=== PATIENT | female | born 1950 | race Caucasian/White ===

== ENCOUNTER 2018-01-07 17:29 | Observation (INO) | payer MEDICARE, SELFPAY ==
[2018-01-07] VITALS (11 sets, daily range): BP systolic 142–172; BP diastolic 70–96; PULSE 65–92; RESP 13–19; TEMP 36.7–36.8; O2SAT 95–100; BMI 38.3; BMI 37.5; BMI 37.6
--- NOTE | 2018-01-07 17:48 | EKG12_ITS ---
Test Reason : CP Blood Pressure : / mmHG Vent. Rate : 076 BPM Atrial Rate : 076 BPM P-R Int : 140 ms QRS Dur : 086 ms QT Int : 394 ms P-R-T Axes : 030 013 080 degrees QTc Int : 443 ms Sinus rhythm with Premature supraventricular complexes Nonspecific ST and T wave abnormality Abnormal ECG Confirmed by DIOR VICK, FRANCK ([id number]), loan expeditor ALYCIA HERRERA ([id number]) on 01/09/2018 12:59:08 PM Referred By: MILTON Confirmed By:FRANCK RADER MD
--- NOTE | 2018-01-07 17:49 | RAD_ITS ---
STUDY: X-RAY CHEST REASON FOR EXAM: Female, 67 years old. Chest pain TECHNIQUE: Frontal and lateral views of the chest COMPARISON: None. FINDINGS: The lungs are clear. There are no pleural effusions. There is no pneumothorax. The heart is normal in size. The visualized osseous structures are within normal limits. RAD/Chest PA and Lateral IMPRESSION: No acute thoracic pathology. Electronically Signed: Musa Muñiz, at 18:14 EDT Tel , Service support ,
[2018-01-07 17:58] LABS: Absolute Lymphocyte Count 1.76 X10^3/ul (0.83-4.51); Absolute Neutrophil Count 2.2 X10^3/uL (2.0-7.7); Basophil# 0.02 X10^3/uL; Basophil% 0.4 % (0-1); Eosinophil# 0.14 X10^3/uL; Eosinophils% 3.1 % (0-5); Hematocrit 39.9 % (37-47); Hemoglobin 13.3 g/dl (12.0-15.0); Lymphocyte # 1.76 X10^3/ul (4.0); Lymphocyte % 38.8 % (19-41); Mean Corp Hgb Conc 33.3 g/gl (32-36); Mean Corpuscular Hgb 29.4 pg (27.0-32.0); Mean Corpuscular Volume 88.1 fL (81-99); Mean Platelet Vol. 11.1 fl (6.2-12.0); Monocyte# 0.44 X10^3/uL; Monocyte% 9.7 % (0-10); Neutrophil # 2.16 X10^3/uL (2.7-7.7); Neutrophil % 47.6 % (47-70); Platelet Count 130 K/mm3 (150-450); RBC Distribution Width CV 13.4 % (11.6-14.6); Red Blood Count 4.53 M/mm3 (4.2-5.4); White Blood Count 4.5 K/mm3 (4.4-11.0)
[2018-01-07 18:00] LABS: POSITIVE COUNT NO; POSITIVE DIFFERENTIAL NO; POSITIVE MORPHOLOGY NO
[2018-01-07] MEDS: Aspirin 81 MG TAB.CHEW 324 MG PO (18:04)
[2018-01-07 18:12] LABS: Anion Gap 9 (5-15); BUN 19 mg/dL (7-18); BUN/Creat Ratio 23.8 RATIO (10-20); Calcium,Total 9.4 mg/dL (8.5-10.1); Chloride 103 mmol/L (98-107); EST Glomerular Filtration Rate 77 mL/min (>60); Est Glom Filt Rate - Afr Amer 93 mL/min (>60); Estimated Creatinine Clearance 60.54 ml/min; Glucose 102 mg/dL (74-106); Potassium 3.7 mmol/L (3.5-5.1); Sodium Level 140 mmol/L (136-145)
--- NOTE | 2018-01-07 18:54 | ED.VISSUMM ---
- ER Visit Summary Date of Service: 01/07/18 Chief Complaint: Chest pain History of Present Illness: The patient is a 67 F presenting for evaluation secondary chest pain. Patient states that she typically walks about a mile and a half per day on the treadmill, but 2 weeks ago she had the of a family member and had to go to [place] to attend the . Patient states that she did walk for about 2 weeks and started walking again yesterday. Patient states that after walking yesterday she had generalized malaise nausea and some aching in her left arm. She states that this improved throughout the day. Patient states that she walked again today had similar episode and was also associated with a feeling of diaphoresis. Patient states that her symptoms have since improved, but this concerned her so she presented to the emergency department. Patient states that while traveling, they did get out of the car every 2 hours she denies any asymmetric swelling of the legs hemoptysis history of DVT or PE. Patient states that her last stress test was a years ago. Physical Examination: Vital signs are within normal limits, patient is afebrile. General: Patient is well-nourished well-developed and in no acute distress. Head: Normocephalic, atraumatic Eyes: Pupils equal round and reactive bilaterally, extra occular motion intact bialterally ENT: Moist mucous membranes Neck: Supple, no lymphadenopathy, no JVD, no meningismus CVS: Heart regular rate and rhythm, no murmurs, rubs or gallops, radial pulses 2+ bilaterally Resp: Respirations nondistressed, lung sounds clear bilaterally Abdomen: Soft, nontender, nondistended, no palpable masses, normal bowel sounds Back: Nontender Extremities: Nontender, atraumatic, active full range of motion, no peripheral edema Skin: warm, no rashes, no petechia Neuro: Alert and oriented x 4, CN 2-12 intact, no lateralizing neurological defecits Psyc: Normal affect Test Results: EKG shows sinus rate [address] segments, normal T waves, occasional PACs. No evidence of acute ischemia or arrhythmia. Chest x-ray per radiology negative. Troponin CBC and chemistry also found to be unremarkable. Emergency Department Course and Treatment: Patient presented with chest pain. Patient's workup was unremarkable as noted above. Patient's QUIANA score is 3, but her symptomatology is significantly concerning a believe she requires admission for cardiac rule out I discussed this with the hospitalist and the patient will be admitted. Disposition: Admission Impression: 1. Chest pain This note was generated with [employer] dictation software. It may contain incorrect words, spelling, and punctuation that were not noted in review of the chart prior to signing ED Disposition - Plan for ED Patient: Chief Complaint: Chest Pain Referrals: Steve Buitrago DO [Primary Care Provider] -
--- NOTE | 2018-01-07 18:57 | ED.DCSUM_ITS ---
- ER Visit Summary Date of Service: 01/07/18 Chief Complaint: Chest pain History of Present Illness: The patient is a 67 F presenting for evaluation secondary chest pain. Patient states that she typically walks about a mile and a half per day on the treadmill, but 2 weeks ago she had the of a family member and had to go to [place] to attend the . Patient states that she did walk for about 2 weeks and started walking again yesterday. Patient states that after walking yesterday she had generalized malaise nausea and some aching in her left arm. She states that this improved throughout the day. Patient states that she walked again today had similar episode and was also associated with a feeling of diaphoresis. Patient states that her symptoms have since improved, but this concerned her so she presented to the emergency department. Patient states that while traveling, they did get out of the car every 2 hours she denies any asymmetric swelling of the legs hemoptysis history of DVT or PE. Patient states that her last stress test was a years ago. Physical Examination: Vital signs are within normal limits, patient is afebrile. General: Patient is well-nourished well-developed and in no acute distress. Head: Normocephalic, atraumatic Eyes: Pupils equal round and reactive bilaterally, extra occular motion intact bialterally ENT: Moist mucous membranes Neck: Supple, no lymphadenopathy, no JVD, no meningismus CVS: Heart regular rate and rhythm, no murmurs, rubs or gallops, radial pulses 2 + bilaterally Resp: Respirations nondistressed, lung sounds clear bilaterally Abdomen: Soft, nontender, nondistended, no palpable masses, normal bowel sounds Back: Nontender Extremities: Nontender, atraumatic, active full range of motion, no peripheral edema Skin: warm, no rashes, no petechia Neuro: Alert and oriented x 4, CN 2-12 intact, no lateralizing neurological defecits Psyc: Normal affect Test Results: EKG shows sinus rate [address] segments, normal T waves, occasional PACs. No evidence of acute ischemia or arrhythmia. Chest x- ray per radiology negative. Troponin CBC and chemistry also found to be unremarkable. Emergency Department Course and Treatment: Patient presented with chest pain. Patient's workup was unremarkable as noted above. Patient's QUIANA score is 3, but her symptomatology is significantly concerning a believe she requires admission for cardiac rule out I discussed this with the hospitalist and the patient will be admitted. Disposition: Admission Impression: 1. Chest pain This note was generated with [employer] dictation software. It may contain incorrect words, spelling, and punctuation that were not noted in review of the chart prior to signing ED Disposition - Plan for ED Patient: Chief Complaint: Chest Pain Referrals: Steve Buitrago DO [Primary Care Provider] -
--- NOTE | 2018-01-07 21:16 | HP.PCM_ITS ---
Problem List (1) Chest pain Status: Acute (2) DMII (diabetes mellitus, type 2) Status: Acute (3) HTN (hypertension) Status: Chronic (4) Hypothyroid Status: Acute History of Present Illness Date of Admission: 01/07/18 Chief Complaint: Chest pain The patient is a 67 year old female w/ h/o DMII, HTN, and hypothyroid admitted for chest pain. Her recently admitted for chest pain. She has been under a lot of stressors and emotional turmoil with a in the family. She recently had to travel to [place] to attend a . She did not do her usual exercise which is walking on her treadmill for 30 mins daily. When she returned to her normal routine, she developed nausea and a overall feeling of fatigue after her exercise yesterday. She walked on her treadmill again today and she developed SOB associated diaphoresis. Nothing appeared to make it better or worse. Despite resting, she did not notice any immediate improvement. However by the time she arrived to the ED, she had some relief of her symptoms. Past Medical History Past Medical History (Chronic Problems): Chronic Problems HTN (hypertension) (Chronic) Allergies tobramycin Allergy (Verified 01/07/18 17:34) Rash Home Medications: Ambulatory Orders Medication Instructions Recorded Aspirin [Aspirin, Baby] 81 mg PO DAILY@0800 01/07/18 Docusate Sodium [Colace] 100 mg PO DAILY 01/07/18 Levothyroxine [Synthroid] 125 mcg PO DAILY 01/07/18 Metformin HCl [Glucophage] 1,000 mg PO BIDCM 01/07/18 Omeprazole [Prilosec] 20 mg PO DAILY 01/07/18 Valsartan/Hydrochlorothiazide 1 each PO DAILY 01/07/18 [Valsartan-Hctz 160-12.5 mg Tab] Smoking Status: Never smoker Alcohol: None Drugs: None Review of Systems Constitutional: Denies: Chills, Fever, Weight Change HEENT: Denies: Head Aches, Sinus Congestion, Sinus Drainage Cardiovascular: Reports: Chest Pain. Denies: Palpitations Respiratory: Denies: Cough, Shortness of breath at rest, Sputum production Gastrointestinal: Denies: Abdominal Pain, Nausea, Vomiting Genitourinary: Denies: Dysuria Musculoskeletal: Denies: Joint Pain, Joint Tenderness Skin: Denies: Rash, Wounds Neurological: Denies: Numbness, Tingling, Focal weakness Psychiatric: Denies: Anxiety, Depression, Homicidal Ideations, Suicidal Ideations Hematologic/ Lymphatic: Denies: Easy Bruising, Easy Bleeding VTE Information - Inpt Only VTE Present on Admission: No VTE Mechan Device Prophylaxis: SCD's VTE Pharm Prophylaxis ordered?: Yes Patient Problems: Active and Suspected Problems Chest pain (Acute) DMII (diabetes mellitus, type 2) (Acute) Hypothyroid (Acute) - Physical Exam General: Alert, Oriented x3, Cooperative HEENT: Atraumatic, PERRLA, EOMI, Normocephalic Neck: Supple, No JVD, Negative Carotid Bruits Lungs: Clear to auscultation, Normal air movement Cardiovascular: Regular rate, No murmurs Abdomen: Bowel Sounds Present, Soft, Non Tender Extremities: No edema, Capillary Refill Less than 3 Seconds Skin: No rashes, No breakdown Musculoskeletal: No Tenderness to Palpation of Joints or Extremities Neurological: Cranial nerves II-XII grossly intact Psych/Mental Status: Normal Affect, Appropriate Vital Signs Temp Pulse Resp BP Pulse Ox 98.1 F 69 16 160/77 H 98 01/07/18 18:41 01/07/18 20:09 01/07/18 20:09 01/07/18 20:09 01/07/18 20:09 Oxygen Delivery Method Nasal Cannula Assessment/Plan Active and Suspected Problems Chest pain (Acute) DMII (diabetes mellitus, type 2) (Acute) Hypothyroid (Acute) 67 year old female w/ h/o DMII, HTN, and hypothyroid admitted for chest pain. 1) Chest pain: Heart score 5 Trops negative EKG disclosed occasional PACs. Otherwise, unremarkable EKG and chest xray. Will resume home meds. ECHO and stress test in AM. 2) HTN: Resume home meds. Monitor. 3) DMII: Resume metformin. 4) Prophylaxis: SCD / heparin.
[2018-01-07 21:53] LABS: D-Dimer Quantitative (DVT/PE) < 0.27 FEU/ug/m (0.27-0.49)
[2018-01-07] MEDS: Carvedilol 6.25 MG Tablet PO (22:31)
[2018-01-08] VITALS (7 sets, daily range): BP systolic 120–123; BP diastolic 56–66; PULSE 50–69; RESP 16–18; TEMP 36.4–36.9; O2SAT 94–98
[2018-01-08] MEDS: Aspirin 81 MG TAB.CHEW PO (05:26)
[2018-01-08] MEDS: Levothyroxine 125 MCG Tablet PO (05:26)
[2018-01-08 05:29] LABS: Absolute Lymphocyte Count 1.65 X10^3/ul (0.83-4.51); Absolute Neutrophil Count 2.4 X10^3/uL (2.0-7.7); Basophil# 0.02 X10^3/uL; Basophil% 0.4 % (0-1); Eosinophil# 0.19 X10^3/uL; Hematocrit 36.3 % (37-47); Lymphocyte # 1.65 X10^3/ul (4.0); Lymphocyte % 34.7 % (19-41); Mean Corp Hgb Conc 33.1 g/gl (32-36); Mean Corpuscular Hgb 29.1 pg (27.0-32.0); Mean Corpuscular Volume 88.1 fL (81-99); Mean Platelet Vol. 10.8 fl (6.2-12.0); Monocyte# 0.46 X10^3/uL; Monocyte% 9.7 % (0-10); Neutrophil # 2.42 X10^3/uL (2.7-7.7); Neutrophil % 50.8 % (47-70); Platelet Count 122 K/mm3 (150-450); RBC Distribution Width CV 13.3 % (11.6-14.6); RBC Distribution Width SD 41.7 fl (35.1-43.9); Red Blood Count 4.12 M/mm3 (4.2-5.4); White Blood Count 4.8 K/mm3 (4.4-11.0)
[2018-01-08 05:36] LABS: International Normalized Ratio 1.1; Prothrombin Time (Protime)PT. 14.4 SECONDS (11.7-14.9)
[2018-01-08 05:37] LABS: Partial Thromboplast Time 30.5 Seconds (24.1-36.2)
[2018-01-08 05:54] LABS: BNP,B-Type NATRIURETIC PEPTIDE 42.5 pg/mL (0-100)
--- NOTE | 2018-01-08 05:55 | EKGRS_ITS ---
Test Reason : AM EKG Blood Pressure : / mmHG Vent. Rate : 058 BPM Atrial Rate : 058 BPM P-R Int : 140 ms QRS Dur : 084 ms QT Int : 462 ms P-R-T Axes : 016 002 057 degrees QTc Int : 453 ms Sinus bradycardia with Premature atrial complexes in a pattern of bigeminy Otherwise normal ECG When compared with ECG of 07-JAN-2018 17:30, MANUAL COMPARISON REQUIRED, DATA IS UNCONFIRMED Confirmed by DIOR VICK, FRANCK ([id number]), online editor ALYCIA HERRERA ([id number]) on 01/11/2018 3:38:12 PM Referred By: AMARJIT Confirmed By:FRANCK RADER MD
[2018-01-08 06:02] LABS: POSITIVE COUNT NO; POSITIVE DIFFERENTIAL NO; POSITIVE MORPHOLOGY NO
--- NOTE | 2018-01-08 06:10 | RAD_ITS ---
STUDY: X-RAY CHEST REASON FOR EXAM: Female, 67 years old. Chest pain and cough TECHNIQUE: PA and lateral views of the chest. COMPARISON: None. FINDINGS: EKG leads overlie the chest The lungs are clear and expanded. There is no demonstrated pleural abnormality. Normal size heart. Normal mediastinum and sara. Normal visualized pulmonary arteries. Normal visualized aortic arch and descending thoracic aorta. Normal visualized thoracic spine. Normal visualized ribs, clavicles, and shoulders. There is no demonstrated abnormality of the visualized soft tissue structures of the upper abdomen. RAD/Chest PA and Lateral IMPRESSION: No acute pulmonary process Electronically Signed: Raymond Palomino MD at 7:48 EDT , Service support ,
[2018-01-08] MEDS: Carvedilol 6.25 MG Tablet PO (09:16)
[2018-01-08] MEDS: Docusate Sodium 100 MG Capsule PO (09:16)
[2018-01-08] MEDS: Pantoprazole Sodium 20 MG Tablet PO (09:17)
[2018-01-08] MEDS: HYDROCHLOROTHIAZIDE 12.5 MG CAPSULE PO (09:17)
[2018-01-08] MEDS: metFORMIN HCl 1,000 MG Tablet 1000 MG PO (09:19)
[2018-01-08 09:47] LABS: ALB/GLOB Ratio 0.9 RATIO (0.9-2.4); AST(SGOT) 27 U/L (15-37); Alanine Aminotransfer ALT/SGPT 28 U/L (13-56); Albumin, Serum 3.6 g/dL (3.2-5.0); Alkaline Phosphatase 65 U/L (45-117); Anion Gap 10 (5-15); BUN 14 mg/dL (7-18); BUN/Creat Ratio 17.7 RATIO (10-20); Bilirubin, Direct 0.16 mg/dL (0.00-0.30); Calcium,Total 9.2 mg/dL (8.5-10.1); Chloride 103 mmol/L (98-107); Cholesterol 202 mg/dL (200); Creatinine, Serum 0.79 mg/dL (0.55-1.02); EST Glomerular Filtration Rate 77 mL/min (>60); Est Glom Filt Rate - Afr Amer 93 mL/min (>60); Estimated Creatinine Clearance 61.31 ml/min; Globulin 3.8 g/dL (2.2-4.2); Glucose 144 mg/dL (74-106); High Density Lipoprotein 43 mg/dL; Magnesium 2.1 mg/dL (1.6-2.6); Potassium 3.7 mmol/L (3.5-5.1); Protein, Total 7.4 g/dL (6.4-8.2); Sodium Level 139 mmol/L (136-145); Thyroid Stim Hormone (TSH) 2.44 uIU/mL (0.358-3.74); Triglycerides 169 mg/dL; Very Low Density Lipoprotein 34 mg/dL (5-40)
--- NOTE | 2018-01-08 09:50 | ECHOD_ITS ---
Reason For Study: Chest Pain Procedure This was a 2D Doppler, Color Flow transthoracic echocardiogram. Exam performed portable in patient room. Left Ventricle Normal LV size. Mild concentric left ventricular hypertrophy. The estimated ejection fraction is 65 %. Left ventricular systolic function is normal. No regional wall motion abnormalities noted. Right Ventricle Normal RV size. Normal systolic function. Atria Normal left atrium. Normal right atrium. Mitral Valve Normal mitral valve. Tricuspid Valve Normal tricuspid valve. Mild tricuspid valve insufficiency. Pulmonary artery systolic pressure is 21 mmHg. Aortic Valve Normal aortic valve. Trisinus/trileaflet aortic valve. Pulmonic Valve Normal pulmonic valve. Great Vessels Normal aortic root. The pulmonary artery is normal size. Normal inferior vena cava. Pericardium/Pleural No pericardial effusion. MMode/2D Measurements & Calculations LVIDd: 4.7 cm IVSd: 1.3 cm Ao root diam: 3.6 cm LVIDs: 3.2 cm LVPWd: 1.2 cm LA dimension: 4.5 cm RVDd: 3.2 cm FS: 32.8 % LAV(MOD-bp): 51.3 ml EDV(MOD-sp4): 78.0 ml SV(MOD-sp4): 59.6 ml LAV(MOD-bp) Indexed: 25.3 ml/m2 ESV(MOD-sp4): 18.5 ml LAV(MOD-sp2): 47.8 ml EF(MOD-sp4): 76.3 % LAV(MOD-sp4): 54.3 ml LA A4 area: 19.7 cm2 RA A4 area: 11.5 cm2 Doppler Measurements & Calculations MV E max jared: 60.1 cm/sec Lat Peak E' Jared: 10.2 cm/sec Med Peak E' Jared: 4.7 cm/sec MV A max jared: 75.2 cm/sec E/E' lat: 5.9 E/E' med: 12.8 MV E/A: 0.80 Ao V2 max: 168.1 cm/sec LV V1 max: 154.3 cm/sec PA V2 max: 109.6 cm/sec Ao max P.3 mmHg LV V1 max P.5 mmHg Ao V2 mean: 109.4 cm/sec Ao mean P.3 mmHg Ao V2 VTI: 33.7 cm TR max jared: 206.1 cm/sec TR max P.0 mmHg Interpretation Summary Normal LV size. Mild concentric left ventricular hypertrophy. The estimated ejection fraction is 65 %. Left ventricular systolic function is normal. Mild tricuspid valve insufficiency. Pulmonary artery systolic pressure is 21 mmHg. Ordering Physician: Letty Orellana Referring Physician: Steve Buitrago Performed By: Kim Ames, SOWMYA, RVT
--- NOTE | 2018-01-08 10:04 | STRESSREP ---
Stress Test Report Pharmacologic myocardial perfusion stress test. 67-year-old lady with a history of chest pain. Stress protocol: Resting EKG demonstrates sinus bradycardia with a rate of 59 bpm. Normal intervals are noted. Resting blood pressure is 112/70 mmHg. 0.4 mg of regadenoson was infused per usual protocol followed by rapid intravenous saline flush injection. Continuous EKG monitoring was performed. The patient maintained sinus rhythm throughout the recording. The maximum heart rate attained was 105 bpm which was 67% of the maximum predicted heart rate the maximum workload attained was 1 metabolic equivalent. The resting blood pressure is 112/70 mmHg. The final blood pressure was 92/54 mmHg. Myocardial perfusion protocol. 14.5 mCi of technetium 99m sestamibi was injected at rest. 0.4 mg of regadenoson was infused per usual protocol. At peak infusion 44.8 mCi of technetium 99m sestamibi was injected. Stress images were obtained. Stress and rest images were reconstructed and compared in the short axis vertical long and horizontal long axis. Gated images were also obtained. Perfusion SPECT analysis. Review of the stress images demonstrate normal uptake of tracer noted in all areas of the myocardium. The resting images similarly demonstrate normal uptake of tracer noted in all areas of the myocardium. No reversibility is noted to suggest ischemia and no previous infarct is noted. Gated SPECT analysis: The gated ejection fraction is noted to be 76%. Conclusion: Normal pharmacologic myocardial perfusion stress test. Preserved ejection fraction.
--- NOTE | 2018-01-08 13:45 | DCINST_ITS ---
- Discharge Diagnoses Current Active Problems: Current Active and Chronic Problems Chest pain (Acute) DMII (diabetes mellitus, type 2) (Acute) HTN (hypertension) (Chronic) Hypothyroid (Acute) You will use the following diet at home:: Calorie/Carbohydrate Controlled ( specify 1200, 1400, etc) - 1800 lexy, Cardiac Your food should be the consistency of: Regular Discharge Activity: Return to Normal Activity Weight Bearing Status: Weight bearing as tolerated Call your doctor if you observe: Fever of 101 or Higher, Shortness of breath, Dizziness, Fainting spells, Chest pain, Increased palpitations (irregular heartbeat), Uncontrolled pain Instructions: Controlling High Blood Pressure, Taking Your Blood Pressure Allergies/Adverse Reactions: Allergies tobramycin Allergy (Verified 01/07/18 17:34) Rash Medications to take at Discharge Aspirin [Aspirin, Baby] 81 mg PO DAILY@0800 01/07/18 Docusate Sodium [Colace] 100 mg PO DAILY 01/07/18 Levothyroxine [Synthroid] 125 mcg PO DAILY 01/07/18 Metformin HCl [Glucophage] 1,000 mg PO BIDCM 01/07/18 Omeprazole [Prilosec] 20 mg PO DAILY 01/07/18 Valsartan/Hydrochlorothiazide [Valsartan-Hctz 160-12.5 mg Tab] 1 each PO DAILY 01/07/18 Primary Care Physician: Steve Buitrago DO [Primary Care Provider] - Please follow up with your Primary Care Physician in: 1 week.
--- NOTE | 2018-01-08 14:44 | PCM.DC.SUM ---
Discharge Date and Diagnosis - Problem List Patient Problems: Active and Suspected Problems Chest pain (Acute) Date of Admission: 01/07/18 Date of Discharge: 01/08/18 - Primary Discharge Diagnosis Active and Suspected Problems Exertional chest pain, negative cardiac workup including stress test. - Secondary Discharge Diagnosis Chronic Problems HTN (hypertension) (Chronic) Hospital Course and Treatment Imaging Results: 01/08/18 09:50 Echo Complete [ECHO] Routine Clinical Impression(s) from Imaging Studies Chest X-Ray 01/07/18 17:49 IMPRESSION: No acute thoracic pathology. Electronically Signed: Musa Muñiz, at 18:14 EDT Tel , Service support , Chest X-Ray 01/08/18 06:10 IMPRESSION: No acute pulmonary process Electronically Signed: Raymond Palomino MD at 7:48 EDT , Service support , Operations: None Procedures: 2-D Echocardiogram, EKG, Stress test Summary of Care Provided: Patient seen and examined on the day of discharge and appeared to be stable to be discharged home. She has no more chest pain this morning. She was admitted because of what seemed to be exertional chest pain. Her vital signs are stable. - Physical Exam General: Alert, Oriented x3, Cooperative, No apparent distress. HEENT: Atraumatic, PERRLA, EOMI. Neck: Supple, No JVD, Negative Carotid Bruits, Trachea Midline, Thyroid Normal. Lungs: Clear to auscultation, Normal air movement, No rhonchi, No wheeze, No rales. Cardiovascular: Regular rate, Regular Rhythm, Normal S1, Normal S2, PMI Normal. Abdomen: Bowel Sounds Present, Soft, Non Tender, Non-Distended, No Hepato-splenomegaly. Extremities: No clubbing, No cyanosis, No edema Skin: No rashes, No breakdown Neurological: Neuro grossly intact Vital Signs are stable. Hospital course: The patient is a 67 year old F admitted because of exertional chest pain for evaluation. Reportedly, patient has been going under a lot of stressors with a in the family. Her EKG revealed no evidence of acute ischemic changes, revealed PACs. Troponin was negative ?4. Chest x-ray showed no acute findings. Her routine blood work was unremarkable. Her d-dimer was negative. Her LFT was normal. TSH was normal. She underwent nuclear stress test that revealed no evidence of acute stress-induced myocardial ischemia with preserved ejection fraction. 2D echocardiogram revealed normal LV size and function, ejection fraction of 65%, mild left ventricular hypertrophy and pulmonary artery pressure of 21. Acute coronary syndrome ruled out. Patient discharged home in a stable medical condition, resumed back on her home medication without any changes, recommended follow-up with PCP in 1 week. Discharge Activity: Return to Normal Activity Weight Bearing Status: Weight bearing as tolerated Call your doctor if you observe: Fever of 101 or Higher, Shortness of breath, Dizziness, Fainting spells, Chest pain, Increased palpitations (irregular heartbeat), Uncontrolled pain Home Medications: Medications to take at Discharge Aspirin [Aspirin, Baby] 81 mg PO DAILY@0800 01/07/18 Docusate Sodium [Colace] 100 mg PO DAILY 01/07/18 Levothyroxine [Synthroid] 125 mcg PO DAILY 01/07/18 Metformin HCl [Glucophage] 1,000 mg PO BIDCM 01/07/18 Omeprazole [Prilosec] 20 mg PO DAILY 01/07/18 Valsartan/Hydrochlorothiazide [Valsartan-Hctz 160-12.5 mg Tab] 1 each PO DAILY 01/07/18 Primary Care Physician: Steve Buitrago DO [Primary Care Provider] - Please follow up with your Primary Care Physician in: 1 week. Please Follow Up With: Steve Buitrago DO Patient Instructions: Controlling High Blood Pressure, Taking Your Blood Pressure Disposition: Home Minutes spent on discharge:: 25 Patient Condition:: Stable Medical Necessity - Tobacco Use Smoking Status: Never smoker Meaningful Use Info Meaningful Use Diagnoses (Choose all that apply): None applicable Code Visit OBSV E&M: 57286 Observation care discharge
--- NOTE | 2018-01-08 14:47 | DS.PCM_ITS ---
Discharge Date and Diagnosis - Problem List Patient Problems: Active and Suspected Problems Chest pain (Acute) Date of Admission: 01/07/18 Date of Discharge: 01/08/18 - Primary Discharge Diagnosis Active and Suspected Problems Exertional chest pain, negative cardiac workup including stress test. - Secondary Discharge Diagnosis Chronic Problems HTN (hypertension) (Chronic) Hospital Course and Treatment Imaging Results: 01/08/18 09:50 Echo Complete [ECHO] Routine Clinical Impression(s) from Imaging Studies Chest X-Ray 01/07/18 17:49 IMPRESSION: No acute thoracic pathology. Electronically Signed: Musa Muñiz, at 18:14 EDT Tel , Service support , Chest X-Ray 01/08/18 06:10 IMPRESSION: No acute pulmonary process Electronically Signed: Raymond Palomino MD at 7:48 EDT , Service support , Operations: None Procedures: 2-D Echocardiogram, EKG, Stress test Summary of Care Provided: Patient seen and examined on the day of discharge and appeared to be stable to be discharged home. She has no more chest pain this morning. She was admitted because of what seemed to be exertional chest pain. Her vital signs are stable. - Physical Exam General: Alert, Oriented x3, Cooperative, No apparent distress. HEENT: Atraumatic, PERRLA, EOMI. Neck: Supple, No JVD, Negative Carotid Bruits, Trachea Midline, Thyroid Normal. Lungs: Clear to auscultation, Normal air movement, No rhonchi, No wheeze, No rales. Cardiovascular: Regular rate, Regular Rhythm, Normal S1, Normal S2, PMI Normal. Abdomen: Bowel Sounds Present, Soft, Non Tender, Non-Distended, No Hepato- splenomegaly. Extremities: No clubbing, No cyanosis, No edema Skin: No rashes, No breakdown Neurological: Neuro grossly intact Vital Signs are stable. Hospital course: The patient is a 67 year old F admitted because of exertional chest pain for evaluation. Reportedly, patient has been going under a lot of stressors with a in the family. Her EKG revealed no evidence of acute ischemic changes, revealed PACs. Troponin was negative ?4. Chest x-ray showed no acute findings. Her routine blood work was unremarkable. Her d-dimer was negative. Her LFT was normal. TSH was normal. She underwent nuclear stress test that revealed no evidence of acute stress-induced myocardial ischemia with preserved ejection fraction. 2D echocardiogram revealed normal LV size and function, ejection fraction of 65%, mild left ventricular hypertrophy and pulmonary artery pressure of 21. Acute coronary syndrome ruled out. Patient discharged home in a stable medical condition, resumed back on her home medication without any changes, recommended follow-up with PCP in 1 week. Discharge Activity: Return to Normal Activity Weight Bearing Status: Weight bearing as tolerated Call your doctor if you observe: Fever of 101 or Higher, Shortness of breath, Dizziness, Fainting spells, Chest pain, Increased palpitations (irregular heartbeat), Uncontrolled pain Home Medications: Medications to take at Discharge Aspirin [Aspirin, Baby] 81 mg PO DAILY@0800 01/07/18 Docusate Sodium [Colace] 100 mg PO DAILY 01/07/18 Levothyroxine [Synthroid] 125 mcg PO DAILY 01/07/18 Metformin HCl [Glucophage] 1,000 mg PO BIDCM 01/07/18 Omeprazole [Prilosec] 20 mg PO DAILY 01/07/18 Valsartan/Hydrochlorothiazide [Valsartan-Hctz 160-12.5 mg Tab] 1 each PO DAILY 01/07/18 Primary Care Physician: Steve Buitrago DO [Primary Care Provider] - Please follow up with your Primary Care Physician in: 1 week. Please Follow Up With: Steve Buitrago DO Patient Instructions: Controlling High Blood Pressure, Taking Your Blood Pressure Disposition: Home Minutes spent on discharge:: 25 Patient Condition:: Stable Medical Necessity - Tobacco Use Smoking Status: Never smoker Meaningful Use Info Meaningful Use Diagnoses (Choose all that apply): None applicable Code Visit OBSV E&M: 24702 Observation care discharge
== END 2018-01-08 13:44 | disposition home or self-care (01) ==
LOC: ED 18:33 → PCU 20:30
PROVIDERS: Admitting Provider Internal Medicine; Emergency Provider Emergency Medicine; Family Provider Preventive Medicine Occupational Medicine; PCP Preventive Medicine Occupational Medicine; Visit Provider Hospitalist
DX: R07.89 Other chest pain (principal); I10 Essential (primary) hypertension; R53.81 Other malaise; R11.0 Nausea; E11.9 Type 2 diabetes mellitus without complications; E03.9 Hypothyroidism, unspecified; K76.0 Fatty (change of) liver, not elsewhere classified; Z79.899 Other long term (current) drug therapy; Z79.84 Long term (current) use of oral hypoglycemic drugs; Z79.82 Long term (current) use of aspirin; R94.31 Abnormal electrocardiogram [ECG] [EKG]; R00.1 Bradycardia, unspecified; I07.1 Rheumatic tricuspid insufficiency
CPT/HCPCS: 36415; 71046; 78452; 80048; 80053; 80061; 82248; 83735; 83880; 84443; 84484; 85025; 85379; 85610; 85730; 93005; 93017; 93306; 99218; 99283; A9500; A4216; G0378; J2785

== ENCOUNTER → 2018-09-10 06:33 | Outpatient (CLI) | payer MEDICARE, SELFPAY ==
[2018-09-10 09:13] LABS: Hemoglobin A1c 6.9 % (4.2-6.3)
[2018-09-10 09:23] LABS: ALB/GLOB Ratio 0.9 RATIO (0.9-2.4); AST(SGOT) 35 U/L (15-37); Alanine Aminotransfer ALT/SGPT 36 U/L (13-56); Albumin, Serum 3.5 g/dL (3.2-5.0); Alkaline Phosphatase 71 U/L (45-117); Anion Gap 12 (5-15); BUN 15 mg/dL (7-18); BUN/Creat Ratio 17.2 RATIO (10-20); Calcium,Total 8.8 mg/dL (8.5-10.1); Chloride 102 mmol/L (98-107); Cholesterol 206 mg/dL (200); Creatinine, Serum 0.87 mg/dL (0.55-1.02); EST Glomerular Filtration Rate 69 mL/min (>60); Est Glom Filt Rate - Afr Amer 84 mL/min (>60); Globulin 3.9 g/dL (2.2-4.2); Glucose 126 mg/dL (74-106); High Density Lipoprotein 30 mg/dL; Protein, Total 7.4 g/dL (6.4-8.2); Sodium Level 141 mmol/L (136-145); Thyroid Stim Hormone (TSH) 6.09 uIU/mL (0.358-3.74); Triglycerides 291 mg/dL; Very Low Density Lipoprotein 58 mg/dL (5-40)
== END ==
PROVIDERS: Family Provider Preventive Medicine Occupational Medicine; PCP Preventive Medicine Occupational Medicine; Referring Provider Preventive Medicine Occupational Medicine; Visit Provider Preventive Medicine Occupational Medicine
DX: I10 Essential (primary) hypertension (principal); E03.9 Hypothyroidism, unspecified; R73.03 Prediabetes; Z13.6 Encounter for screening for cardiovascular disorders
CPT/HCPCS: 36415; 80053; 80061; 83036; 84443

== ENCOUNTER → 2018-11-05 07:26 | Outpatient (CLI) | payer MEDICARE, SELFPAY ==
[2018-01-07 21:18] VITALS: BMI 37.5
[2018-11-05 08:23] LABS: Thyroid Stim Hormone (TSH) 3.37 uIU/mL (0.358-3.74)
--- OUTSIDE RECORDS SUMMARY | 2019-01-07 15:04 | XMS RPT_ITS ---
:1950 Author Organization OHIP Support Name Relationship Address Phone GODFREY RAJAN Unavailable [id number] + [place] [address] R Unavailable Unavailable Unavailable KATELYN TRACY Unavailable [address] [place] [address] GODFREY RAJAN Unavailable [address] + [place] [address] R Unavailable Unavailable Unavailable KATELYN TRACY Unavailable [address] + [address] [place] [address] GODFREY RAJAN Unavailable [address] + [place] [address] R Unavailable Unavailable Unavailable KATELYN TRACY Unavailable [address] + [address] [place] [address] GODFREY RAJAN Unavailable [address] + [place] [address] R Unavailable Unavailable Unavailable KATELYN TRACY Unavailable [address] + [address] [place] [address] GODFREY RAJAN Unavailable [address] + [place] [address] R Unavailable Unavailable Unavailable KATELYN TRACY Unavailable [address] + [address] [place] [address] GODFREY RAJAN Unavailable [address] + [place] [address] R Unavailable Unavailable Unavailable KATELYN TRACY Unavailable [address] + [address] [place] [address] Care Team Providers Name Role Phone Steve Buitrago Attending Unavailable Steve Buitrago Referring Unavailable Steve Buitrago Primary Care Unavailable Steve Buitrago Primary Care Unavailable Amarjit, Sulaiman Admitting Unavailable Reyna, Ghasem Attending Unavailable Amarjit, Sulaiman Admitting Unavailable Steve Buitrago Primary Care Unavailable Amarjit, Sulaiman Consulting Unavailable Clinton Hansen Attending Unavailable Amarjit, Sulaiman Admitting Unavailable Andersonwendy, Ghasem Attending Unavailable Minna Steve Primary Care Unavailable Ashelfah, Ghasem Consulting Unavailable Taj, Joe Attending Unavailable Steve Buitrago Attending Unavailable Steve Buitrago Primary Care Unavailable Steve Buitrago Referring Unavailable PROBLEMS PROBLEMS DATE TYPE CONDITION / CODE ATTENDING STATUS SOURCE 11/05/2018 Unknown E03.9 - Steve Buitrago Active [place] Hypothyroidism, Community unspecified / Hospital E03.9(ICD-10) Repository 02/05/2018 Unknown R07.9 - Chest Taj, [place] Active Akbar pain, unspecified Community / R07.9(ICD-10) Hospital Repository PROCEDURES PROCEDURES No Procedure Records FoundRESULTS RESULTS THYROID STIM HORMONE Collected: 11/05/2018 Status: F Source: [place] (TSH) 7:31 AM [facility]POS[facility] TYPE CODE TESTS RESULT OUT OF RANGE REFERENCE UNITS LAB L501.9520 0.358-3.74 uIU/mL Normal TSH 3.37 Performed By: #### L501.9520 #### [facility] [place], [place], [address] HEMOGLOBIN A1C Collected: 09/10/2018 Status: F Source: [place] 6:43 AM [facility] REPOSITORY TYPE CODE TESTS RESULT OUT OF RANGE REFERENCE UNITS LAB L501.9985 4.2-6.3 % High HGB A1C 6.9 Performed By: #### L501.9985 #### [facility] [address] [place], [place], [address] COMPREHENSIVE METABOLIC Collected: 09/10/2018 Status: F Source: [place] PROFIL 6:43 AM [facility] REPOSITORY TYPE CODE TESTS RESULT OUT OF RANGE REFERENCE UNITS LAB L501.0100 74-106 mg/dL High GLU 126 Result Comment: Fasting Glucose result greater than or equal to 126 mg/dL suggests DIABETES MELLITUS per A.D.A. criteria. Please note revised GLUCOSE reference range effective 2017. LAB L501.1000 7-18 mg/dL Normal BUN 15 LAB L501.1100 0.55-1.02 mg/dL Normal CREAT,SERUM 0.87 Result Comment: The validity of the calculated GFR AND GFRAA in patients over 70 years has not been determined. Clinical correlation is essential. LAB L501.1110 >60 mL/min Normal EST GFR 69 Result Comment: Non- GFR Calc LAB L501.1115 >60 mL/min Normal EST GFR - AA 84 Result Comment: GFR Calc LAB L501.1300 10-20 RATIO Normal BUN/CRE 17.2 LAB L501.1500 6.4-8.2 g/dL T Normal PROT 7.4 LAB L501.1800 3.2-5.0 g/dL Normal ALB 3.5 LAB L501.1950 2.2-4.2 g/dL Normal GLOB 3.9 LAB L501.2000 0.9-2.4 RATIO Normal A/G 0.9 LAB L501.2200 8.5-10.1 mg/dL CA Normal 8.8 LAB L501.4100 15-37 U/L Normal AST 35 LAB L501.4305 45-117 U/L Normal ALK P 71 LAB L501.4405 13-56 U/L Normal ALT 36 LAB L501.4600 0.20-1.00 mg/dL T Normal BILI 0.50 LAB L501.5300 136-145 mmol/L NA Normal 141 LAB L501.5600 3.5-5.1 mmol/L K Normal 4.0 LAB L501.5900 98-107 mmol/L CL Normal 102 LAB L501.6100 21.0-32.0 mmol/L Normal CO2 27.0 LAB L501.6200 5-15 Normal GAP 12 Performed By: #### L500.4050, L500.4100, L501.9520 #### [facility] [address] [place], [place], [id number] LIPID PROFILE Collected: 09/10/2018 Status: F Source: AKBAR 6:43 AM [facility] REPOSITORY TYPE CODE TESTS RESULT OUT OF RANGE REFERENCE UNITS LAB L501.4900 200 mg/dL High CHOL 206 Result Comment: <200 mg/dL Desirable 200-240 mg/dL Borderline >240 mg/dL High Risk LAB L501.5000 mg/dL High TRIG 291 Result Comment: The drugs N-Acetylcysteine and Metamizole may falsely depress this assay. Serum Triglycerides Reference Interval Normal <150 mg/dL Borderline high 150 - 199 mg/dL High 200 - 499 mg/dL Very High > or = 500 mg/dL LAB L501.6400 mg/dL Low HDL 30 Result Comment: The drugs N-Acetylcysteine and Metamizole may falsely depress this assay. Reference Range HDL <40 mg/dL Low HDL Cholesterol HDL >or= 60 mg/dL High HDL Cholesterol LAB L501.6500 0-130 mg/dL Normal LDL 118 LAB L501.6600 5-40 mg/dL High VLDL 58 Performed By: #### L500.4050, L500.4100, L501.9520 #### [facility] [address] [place], [address] THYROID STIM HORMONE Collected: 09/10/2018 Status: F Source: [place] (TSH) 6:43 AM [facility] REPOSITORY TYPE CODE TESTS RESULT OUT OF RANGE REFERENCE UNITS LAB L501.9520 0.358-3.74 uIU/mL High TSH 6.09 Performed By: #### L500.4050, L500.4100, L501.9520 #### [facility] [address] [place], [address] 12 LEAD EKG W/ Observed: 01/11/2018 Status: F Source: [place] RHYTHM STRIP 3:38 PM [facility] REPOSITORY [facility] Cardiovascular Services [address] [place] [address] 12 Lead EKG with Rhythm Strip 01/08/18 0502 MR#: [id number] Acct: [id number] Name: NANDA TRACY Rep #: [id number] : 1950 67 From: Joe Vang MD Attending Dr: Letty Orellana Status: DIS MATTIE Ordering Dr: Sulaiman Rowland MD Date: 01/08/18 Location: [facility] Sex: F C Admitted: 01/07/18 Test Reason : AM EKG Blood Pressure : / mmHG Vent. Rate : 058 BPM Atrial Rate : 058 BPM P-R Int : 140 ms QRS Dur : 084 ms QT Int : 462 ms P-R-T Axes : 016 002 057 degrees QTc Int : 453 ms Sinus bradycardia with Premature atrial complexes in a pattern of bigeminy Otherwise normal ECG When compared with ECG of 07-JAN-2018 17:30, MANUAL COMPARISON REQUIRED, DATA IS UNCONFIRMED Confirmed by JOE VANG MD ([id number]), book or script editor ALYCIA HERRERA ([id number]) on 01/11/2018 3:38:12 PM Referred By: AMARJIT Confirmed By:JOE VANG MD 01/11/18 1538 Date Joe Vang MD CC: Letty Orellana; Sulaiman Rowland MD; Steve Buitrago DO Signed 12 LEAD ELECTROCARDIOGRAM Observed: 01/09/2018 Status: F Source: [place] 12:59 PM [facility] REPOSITORY [facility] Cardiovascular Services [address] [place] [address] 12 Lead EKG 01/07/18 1730 MR#: [id number] Acct: [id number] Name: NANDA TRACY Rep #: [id number] : 1950 67 From: Joe Vang MD Attending Dr: Letty Orellana Status: DIS MATTIE Ordering Dr: Justin Luu MD Date: 01/07/18 Location: [facility] Sex: F C Admitted: 01/07/18 Test Reason : CP Blood Pressure : / mmHG Vent. Rate : 076 BPM Atrial Rate : 076 BPM P-R Int : 140 ms QRS Dur : 086 ms QT Int : 394 ms P-R-T Axes : 030 013 080 degrees QTc Int : 443 ms Sinus rhythm with Premature supraventricular complexes Nonspecific ST and T wave abnormality Abnormal ECG Confirmed by JOE VANG MD ([id number]), book or script editor ALYCIA HERRERA ([id number]) on 01/09/2018 12:59:08 PM Referred By: MILTON Confirmed By:JOE VANG MD 01/09/18 9879 Date Joe Vang MD CC: Letty Orellana; Justin Luu; Steve Buitrago DO Signed DISCHARGE SUMMARY Observed: 01/08/2018 Status: F Source: [place] 3:42 PM [facility] REPOSITORY [facility] Medical Records Department [address] [place] [address] Discharge Summary 01/08/18 1444 MR#: [id number] Acct: [id number] Name: NANDA TRACY Rep #: [id number] : 1950 67 From: Letty Orellana MD PCP: Steve Buitrago DO Status: DIS MATTIE Y Location: [place] [address] Discharge Date and Diagnosis - Problem List Patient Problems: Active and Suspected Problems Chest pain (Acute) Date of Admission: 01/07/18 Date of Discharge: 01/08/18 - Primary Discharge Diagnosis Active and Suspected Problems Exertional chest pain, negative cardiac workup including stress test. - Secondary Discharge Diagnosis Chronic Problems HTN (hypertension) (Chronic) Hospital Course and Treatment Imaging Results: 01/08/18 09:50 Echo Complete [ECHO] Routine Clinical Impression(s) from Imaging Studies Chest X-Ray 01/07/18 17:49 IMPRESSION: No acute thoracic pathology. Electronically Signed: Musa Muñiz at 18:14 EDT Tel , Service support , Chest X-Ray 01/08/18 06:10 IMPRESSION: No acute pulmonary process Electronically Signed: Raymond Palomino MD at 7:48 EDT , Service support , Operations: None Procedures: 2-D Echocardiogram, EKG, Stress test Summary of Care Provided: Patient seen and examined on the day of discharge and appeared to be stable to be discharged home. She has no more chest pain this morning. She was admitted because of what seemed to be exertional chest pain. Her vital signs are stable. - Physical Exam General: Alert, Oriented x3, Cooperative, No apparent distress. HEENT: Atraumatic, PERRLA, EOMI. Neck: Supple, No JVD, Negative Carotid Bruits, Trachea Midline, Thyroid Normal. Lungs: Clear to auscultation, Normal air movement, No rhonchi, No wheeze, No rales. Cardiovascular: Regular rate, Regular Rhythm, Normal S1, Normal S2, PMI Normal. Abdomen: Bowel Sounds Present, Soft, Non Tender, Non-Distended, No Hepato-splenomegaly. Extremities: No clubbing, No cyanosis, No edema Skin: No rashes, No breakdown Neurological: Neuro grossly intact Vital Signs are stable. Hospital course: The patient is a 67 year old F admitted because of exertional chest pain for evaluation. Reportedly, patient has been going under a lot of stressors with a in the family. Her EKG revealed no evidence of acute ischemic changes, revealed PACs. Troponin was negative 4. Chest x-ray showed no acute findings. Her routine blood work was unremarkable. Her d-dimer was negative. Her LFT was normal. TSH was normal. She underwent nuclear stress test that revealed no evidence of acute stress-induced myocardial ischemia with preserved ejection fraction. 2D echocardiogram revealed normal LV size and function, ejection fraction of 65%, mild left ventricular hypertrophy and pulmonary artery pressure of 21. Acute coronary syndrome ruled out. Patient discharged home in a stable medical condition, resumed back on her home medication without any changes, recommended follow-up with PCP in 1 week. Discharge Activity: Return to Normal Activity Weight Bearing Status: Weight bearing as tolerated Call your doctor if you observe: Fever of 101 or Higher, Shortness of breath, Dizziness, Fainting spells, Chest pain, Increased palpitations (irregular heartbeat), Uncontrolled pain Home Medications: Medications to take at Discharge Aspirin [Aspirin, Baby] 81 mg PO DAILY@0800 01/07/18 Docusate Sodium [Colace] 100 mg PO DAILY 01/07/18 Levothyroxine [Synthroid] 125 mcg PO DAILY 01/07/18 Metformin HCl [Glucophage] 1,000 mg PO BIDCM 01/07/18 Omeprazole [Prilosec] 20 mg PO DAILY 01/07/18 Valsartan/Hydrochlorothiazide [Valsartan-Hctz 160-12.5 mg Tab] 1 each PO DAILY 01/07/18 Primary Care Physician: Steve Buitrago DO [Primary Care Provider] - Please follow up with your Primary Care Physician in: 1 week. Please Follow Up With: Steve Buitrago DO Patient Instructions: Controlling High Blood Pressure, Taking Your Blood Pressure Disposition: Home Minutes spent on discharge:: 25 Patient Condition:: Stable Medical Necessity - Tobacco Use Smoking Status: Never smoker Meaningful Use Info Meaningful Use Diagnoses (Choose all that apply): None applicable Code Visit OBSV E AND M: 66422 Observation care discharge 01/08/18 1542 <Electronically signed by Letty Orellana MD> Date Letty Orellana MD Cosigner Signature (if applicable): Date CC: Letty Orellana; Steve Buitrago DO Signed ECHOCARDIOGRAM COMPLETE Observed: 01/08/2018 Status: F Source: [place] 3:12 PM [facility] REPOS[facility]ORY [facility] Cardiovascular Services [address] [place] [address] Echo Complete 01/08/18 1045 MR#: [id number] Acct: [id number] Name: NANDA TRACY Rep #: [id number] : 1950 67 From: Joe Vang MD Attending Dr: Letty Orellana Status: ADM MATTIE Ordering Dr: Letty Orellana MD Date: 01/08/18 Location: [facility] Sex: F C Admitted: 01/07/18 Reason For Study: Chest Pain Procedure This was a 2D Doppler, Color Flow transthoracic echocardiogram. Exam performed portable in patient room. Left Ventricle Normal LV size. Mild concentric left ventricular hypertrophy. The estimated ejection fraction is 65 %. Left ventricular systolic function is normal. No regional wall motion abnormalities noted. Right Ventricle Normal RV size. Normal systolic function. Atria Normal left atrium. Normal right atrium. Mitral Valve Normal mitral valve. Tricuspid Valve Normal tricuspid valve. Mild tricuspid valve insufficiency. Pulmonary artery systolic pressure is 21 mmHg. Aortic Valve Normal aortic valve. Trisinus/trileaflet aortic valve. Pulmonic Valve Normal pulmonic valve. Great Vessels Normal aortic root. The pulmonary artery is normal size. Normal inferior vena cava. Pericardium/Pleural No pericardial effusion. MMode/2D Measurements AND Calculations LVIDd: 4.7 cm IVSd: 1.3 cm Ao root diam: 3.6 cm LVIDs: 3.2 cm LVPWd: 1.2 cm LA dimension: 4.5 cm RVDd: 3.2 cm FS: 32.8 % LAV(MOD-bp): 51.3 ml EDV(MOD-sp4): 78.0 ml SV(MOD-sp4): 59.6 ml LAV(MOD-bp) Indexed: 25.3 ml/m2 ESV(MOD-sp4): 18.5 ml LAV(MOD-sp2): 47.8 ml EF(MOD-sp4): 76.3 % LAV(MOD-sp4): 54.3 ml LA A4 area: 19.7 cm2 RA A4 area: 11.5 cm2 Doppler Measurements AND Calculations MV E max jared: 60.1 cm/sec Lat Peak E' Jared: 10.2 cm/sec Med Peak E' Jared: 4.7 cm/sec MV A max jared: 75.2 cm/sec E/E' lat: 5.9 E/E' med: 12.8 MV E/A: 0.80 Ao V2 max: 168.1 cm/sec LV V1 max: 154.3 cm/sec PA V2 max: 109.6 cm/sec Ao max P.3 mmHg LV V1 max P.5 mmHg Ao V2 mean: 109.4 cm/sec Ao mean P.3 mmHg Ao V2 VTI: 33.7 cm TR max jared: 206.1 cm/sec TR max P.0 mmHg Interpretation Summary Normal LV size. Mild concentric left ventricular hypertrophy. The estimated ejection fraction is 65 %. Left ventricular systolic function is normal. Mild tricuspid valve insufficiency. Pulmonary artery systolic pressure is 21 mmHg. Ordering Physician: Letty Orellana Referring Physician: Steve Buitrago Performed By: Kim Ames, CHAZCS, RVT 01/08/18 1511 Date Joe Vang MD CC: Letty Orellana; Steve Buitrago DO Date Dictated: 01/08/18 1045 Date Transcribed: 01/08/18 1511 Field Reimbursement Manager: Signed DISCHARGE INSTRUCTION Observed: 01/08/2018 Status: F Source: AKBAR 1:45 PM [facility] REPOSITORY [facility] Medical Records Department [address] [place] [address] Instructions for Home/Discharge Instructions 01/08/18 1343 MR#: [id number] Acct: [id number] Name: NANDA TRACY Rep #: [id number] : 1950 67 From: Letty Orellana MD PCP: Steve Buitrago DO Status: ADM MATTIE - Discharge Diagnoses Current Active Problems: Current Active and Chronic Problems Chest pain (Acute) DMII (diabetes mellitus, type 2) (Acute) HTN (hypertension) (Chronic) Hypothyroid (Acute) You will use the following diet at home:: Calorie/Carbohydrate Controlled (specify 1200, 1400, etc) - 1800 lexy, Cardiac Your food should be the consistency of: Regular Discharge Activity: Return to Normal Activity Weight Bearing Status: Weight bearing as tolerated Call your doctor if you observe: Fever of 101 or Higher, Shortness of breath, Dizziness, Fainting spells, Chest pain, Increased palpitations (irregular heartbeat), Uncontrolled pain Instructions: Controlling High Blood Pressure, Taking Your Blood Pressure Allergies/Adverse Reactions: Allergies tobramycin Allergy (Verified 01/07/18 17:34) Rash Medications to take at Discharge Aspirin [Aspirin, Baby] 81 mg PO DAILY@0800 01/07/18 Docusate Sodium [Colace] 100 mg PO DAILY 01/07/18 Levothyroxine [Synthroid] 125 mcg PO DAILY 01/07/18 Metformin HCl [Glucophage] 1,000 mg PO BIDCM 01/07/18 Omeprazole [Prilosec] 20 mg PO DAILY 01/07/18 Valsartan/Hydrochlorothiazide [Valsartan-Hctz 160-12.5 mg Tab] 1 each PO DAILY 01/07/18 Primary Care Physician: Steve Buitrago DO [Primary Care Provider] - Please follow up with your Primary Care Physician in: 1 week. 01/08/18 1345 <Electronically signed by Letty Orellana MD> Date Letty Orellana MD CC: Steve Buitrago DO STRESS REPORT Observed: 01/08/2018 Status: F Source: AKBAR 10:07 AM [facility] REPOSITORY [facility] Cardiovascular Services [address] [place] [address] MR#: [id number] Acct: [id number] Name: NANDA TRACY Rep #: [id number] : 1950 67 From: Joe Vang MD Primary Care: Minna Steve Status: ADM MATTIE Ordering Dr: Sex: F C Stress Test Report Pharmacologic myocardial perfusion stress test. 67-year-old lady with a history of chest pain. Stress protocol: Resting EKG demonstrates sinus bradycardia with a rate of 59 bpm. Normal intervals are noted. Resting blood pressure is 112/70 mmHg. 0.4 mg of regadenoson was infused per usual protocol followed by rapid intravenous saline flush injection. Continuous EKG monitoring was performed. The patient maintained sinus rhythm throughout the recording. The maximum heart rate attained was 105 bpm which was 67% of the maximum predicted heart rate the maximum workload attained was 1 metabolic equivalent. The resting blood pressure is 112/70 mmHg. The final blood pressure was 92/54 mmHg. Myocardial perfusion protocol. 14.5 mCi of technetium 99m sestamibi was injected at rest. 0.4 mg of regadenoson was infused per usual protocol. At peak infusion 44.8 mCi of technetium 99m sestamibi was injected. Stress images were obtained. Stress and rest images were reconstructed and compared in the short axis vertical long and horizontal long axis. Gated images were also obtained. Perfusion SPECT analysis. Review of the stress images demonstrate normal uptake of tracer noted in all areas of the myocardium. The resting images similarly demonstrate normal uptake of tracer noted in all areas of the myocardium. No reversibility is noted to suggest ischemia and no previous infarct is noted. Gated SPECT analysis: The gated ejection fraction is noted to be 76%. Conclusion: Normal pharmacologic myocardial perfusion stress test. Preserved ejection fraction. 01/08/18 1007 <Electronically signed by Joe Vang MD> Date Joe Vang MD CC: Letty Orellana; Steve Minna DO Date Dictated: 01/08/181003 Date Transcribed: 01/08/181003 Field Reimbursement Manager: [place] Signed TROPONIN-I Collected: 01/08/2018 Status: F Source: [place] 5:05 AM [facility] REPOSITORY Order Comment: PT IN STRESS TEST [facility]. 'TROP' Serial specimen #1, #2, #3, or #4: 4 TYPE CODE TESTS RESULT OUT OF RANGE REFERENCE UNITS LAB L501.4010 <0.06 ng/mL Normal < 0.02 TROPONIN-I Result Comment: TROPONIN-I EXPECTED VALUES <0.05 NEGATIVE 0.06 - 0.59 AT RISK OF DE > OR = 0.60 SUGGEST DE Performed By: #### L501.4010, L500.4050, L500.4100, L501.4700, L501.5200, L501.9520 #### [facility] [address] [place], [address] COMPREHENSIVE METABOLIC Collected: 01/08/2018 Status: F Source: [facility] 5:05 AM [facility] REPOSITORY Order Comment: PT IN STRESS TEST [facility]. 'TROP' Serial specimen #1, #2, #3, or #4: 4 TYPE CODE TESTS RESULT OUT OF RANGE REFERENCE UNITS LAB L501.0100 74-106 mg/dL High GLU 144 Result Comment: Fasting Glucose result greater than or equal to 126 mg/dL suggests DIABETES MELLITUS per A.D.A. criteria. Please note revised GLUCOSE reference range effective 2017. LAB L501.1000 7-18 mg/dL Normal BUN 14 LAB L501.1100 0.55-1.02 mg/dL Normal CREAT,SERUM 0.79 Result Comment: The validity of the calculated GFR AND GFRAA in patients over 70 years has not been determined. Clinical correlation is essential. LAB L501.1110 >60 mL/min Normal EST GFR 77 Result Comment: Non- GFR Calc LAB L501.1115 >60 mL/min Normal EST GFR - AA 93 Result Comment: GFR Calc LAB L501.1255 ml/min Normal Estimated CRCL 61.31 LAB L501.1300 10-20 RATIO Normal BUN/CRE 17.7 LAB L501.1500 6.4-8. g/dL Normal 2 T PROT 7.4 LAB L501.1800 3.2-5. g/dL Normal 0 ALB 3.6 LAB L501.1950 2.2-4. g/dL Normal 2 GLOB 3.8 LAB L501.2000 0.9-2. RATIO Normal 4 A/G 0.9 LAB L501.2200 8.5-10 mg/dL Normal .1 CA 9.2 LAB L501.4100 15-37 U/L Normal AST 27 LAB L501.4305 45-117 U/L Normal ALK P 65 LAB L501.4405 13-56 U/L Normal ALT 28 Result Comment: Please note revised ALT reference range effective 2017. LAB L501.4600 0.20-1.00 mg/dL Normal T BILI 0.70 LAB L501.5300 136-145 mmol/L Normal NA 139 LAB L501.5600 3.5-5.1 mmol/L Normal K 3.7 LAB L501.5900 98-107 mmol/L Normal CL 103 LAB L501.6100 21.0-32.0 mmol/L Normal CO2 26.0 LAB L501.6200 5-15 Normal GAP 10 Performed By: #### L501.4010, L500.4050, L500.4100, L501.4700, L501.5200, L501.9520 #### [facility] [address] [place], [place], [address] LIPID PROFILE Collected: 01/08/2018 Status: F Source: [place] 5:05 AM [facility] REPOSITORY Order Comment: PT IN STRESS TEST [facility]. 'TROP' Serial specimen #1, #2, #3, or #4: 4 TYPE CODE TESTS RESULT OUT OF RANGE REFERENCE UNITS LAB L501.4900 200 mg/dL High CHOL 202 Result Comment: <200 mg/dL Desirable 200-240 mg/dL Borderline >240 mg/dL High Risk LAB L501.5000 mg/dL Normal TRIG 169 Result Comment: The drugs N-Acetylcysteine and Metamizole may falsely depress this assay. Serum Triglycerides Reference Interval Normal <150 mg/dL Borderline high 150 - 199 mg/dL High 200 - 499 mg/dL Very High > or = 500 mg/dL LAB L501.6400 mg/dL Normal HDL 43 Result Comment: The drugs N-Acetylcysteine and Metamizole may falsely depress this assay. Reference Range HDL <40 mg/dL Low HDL Cholesterol HDL >or= 60 mg/dL High HDL Cholesterol LAB L501.6500 0-130 mg/dL Normal LDL 125 LAB L501.6600 5-40 mg/dL Normal VLDL 34 Performed By: #### L501.4010, L500.4050, L500.4100, L501.4700, L501.5200, L501.9520 #### [facility] [address] [place], [place], [address] BILIRUBIN, DIRECT Collected: 01/08/2018 Status: F Source: [place] 5:05 [facility] REPOSITORY Order Comment: PT IN STRESS TEST [facility]. 'TROP' Serial specimen #1, #2, #3, or #4: 4 TYPE CODE TESTS RESULT OUT OF RANGE REFERENCE UNITS LAB L501.4700 0.00-0.30 mg/dL Normal D BILI 0.16 Performed By: #### L501.4010, L500.4050, L500.4100, L501.4700, L501.5200, L501.9520 #### [facility] [address] [place], [place], [address] MAGNESIUM Collected: 01/08/2018 Status: F Source: [place] 5:05 AM [facility] REPOSITORY Order Comment: PT IN STRESS TEST [facility]. 'TROP' Serial specimen #1, #2, #3, or #4: 4 TYPE CODE TESTS RESULT OUT OF RANGE REFERENCE UNITS LAB L501.5200 1.6-2.6 mg/dL Normal MG 2.1 Result Comment: Please note revised Magnesium reference range effective 2017. Performed By: #### L501.4010, L500.4050, L500.4100, L501.4700, L501.5200, L501.9520 #### [facility] [address] [place], [address] THYROID STIM HORMONE Collected: 01/08/2018 Status: F Source: AKBAR (TSH) 5:05 AM [facility] Order Comment: PT IN STRESS TEST [facility]. 'TROP' Serial specimen #1, #2, #3, or #4: 4 TYPE CODE TESTS RESULT OUT OF RANGE REFERENCE UNITS LAB L501.9520 0.358-3.74 uIU/mL Normal TSH 2.44 Performed By: #### L501.4010, L500.4050, L500.4100, L501.4700, L501.5200, L501.9520 #### [facility] [address] [place], [address] PROTHROMBIN TIME W/INR Collected: 01/08/2018 Status: F Source: AKBAR 5:05 AM [facility] TYPE CODE TESTS RESULT OUT OF RANGE REFERENCE UNITS LAB L300.4150 11.7-14.9 SECONDS Normal PROTIME 14.4 LAB L300.4200 Normal INR 1.1 Performed By: #### L300.3900, L300.4310 #### [facility] [address] [place], [address] PARTIAL THROMBOPLAST Collected: 01/08/2018 Status: F Source: AKBAR TIME 5:05 AM [facility] TYPE CODE TESTS RESULT OUT OF RANGE REFERENCE UNITS LAB L300.4310 24.1-36.2 Seconds Normal PTT 30.5 Performed By: #### L300.3900, L300.4310 #### [facility] [address] [place], [address] BNP,B-TYPE NATRIURETIC Collected: 01/08/2018 Status: F Source: AKBAR PEPTIDE 5:05 AM [facility] TYPE CODE TESTS RESULT OUT OF RANGE REFERENCE UNITS LAB L503.6620 0-100 pg/mL Normal B-TYPE 42.5 DERIAN PEP Performed By: #### L503.6620 #### [facility] [address] [place], [address] CBC W/DIFF, AUTOMATED Collected: 01/08/2018 Status: F Source: AKBAR 5:05 AM [facility] TYPE CODE TESTS RESULT OUT OF RANGE REFERENCE UNITS LAB L100.1000 4.4-11.0 K/mm3 Normal WBC 4.8 LAB L100.1200 4.2-5.4 M/mm3 Low RBC 4.12 LAB L100.1300 12.0-15.0 g/dl Normal HGB 12.0 LAB L100.1400 37-47 % Low HCT 36.3 LAB L100.1500 81-99 fL Normal MCV 88.1 LAB L100.1600 27.0-32.0 pg Normal MCH 29.1 LAB L100.1700 32-36 g/gl Normal MCHC 33.1 LAB L100.1810 11.6-14.6 % Normal RDW CV 13.3 LAB L100.1820 35.1-43.9 fl Normal RDW SD 41.7 LAB L100.1900 150-450 K/mm3 Low PLT 122 LAB L100.2000 6.2-12.0 fl Normal MPV 10.8 LAB L100.2100 47-70 % Normal NEUT% 50.8 LAB L100.2200 19-41 % Normal LY% 34.7 LAB L100.2300 0-10 % Normal MONO% 9.7 LAB L100.2400 0-5 % Normal EO% 4.0 LAB L100.2500 0-1 % Normal BASO% 0.4 LAB L100.2550 0.0-0.9 % Normal IM GRAN % 0.400 Result Comment: IG% - Immature Granulocytes (promyelocytes, myelocytes and metamyelocytes) > 1% indicates that a LEFT SHIFT is Present. LAB L100.2620 2.0-7.7 X10 3/uL Normal Absolute Neut 2.4 LAB L100.2720 0.83-4.51 X10 3/ul Normal Absolute Lymph 1.65 Performed By: #### L100.0100 #### [facility] [address] [place], [address] HISTORY AND PHYSICAL Observed: 01/08/2018 Status: F Source: AKBAR EXAM 4:52 AM [facility] REPOSITORY [facility] Medical Records Department [address] [place] [address] History and Physical 01/07/182113 MR#: [id number] Acct: [id number] Name: NANDA TRACY Rep #: [id number] : 1950 67 From: Sulaiman Rowland MD PCP: Steve Buitrago DO Status: ADM MATTIE Y Location: [place] [address] Problem List (1) Chest pain Status: Acute (2) DMII (diabetes mellitus, type 2) Status: Acute (3) HTN (hypertension) Status: Chronic (4) Hypothyroid Status: Acute History of Present Illness Date of Admission: 01/07/18 Chief Complaint: Chest pain The patient is a 67 year old female w/ h/o DMII, HTN, and hypothyroid admitted for chest pain. Her recently admitted for chest pain. She has been under a lot of stressors and emotional turmoil with a in the family. She recently had to travel to [place] to attend a . She did not do her usual exercise which is walking on her treadmill for 30 mins daily. When she returned to her normal routine, she developed nausea and a overall feeling of fatigue after her exercise yesterday. She walked on her treadmill again today and she developed SOB associated diaphoresis. Nothing appeared to make it better or worse. Despite resting, she did not notice any immediate improvement. However by the time she arrived to the ED, she had some relief of her symptoms. Past Medical History Past Medical History (Chronic Problems): Chronic Problems HTN (hypertension) (Chronic) Allergies tobramycin Allergy (Verified 01/07/18 17:34) Rash Home Medications: Ambulatory Orders Medication Instructions Recorded Aspirin [Aspirin, Baby] 81 mg PO DAILY@0800 01/07/18 Docusate Sodium [Colace] 100 mg PO DAILY 01/07/18 Levothyroxine [Synthroid] 125 mcg PO DAILY 01/07/18 Smoking Status: Never smoker Alcohol: None Drugs: None Review of Systems Constitutional: Denies: Chills, Fever, Weight Change HEENT: Denies: Head Aches, Sinus Congestion, Sinus Drainage Cardiovascular: Reports: Chest Pain. Denies: Palpitations Respiratory: Denies: Cough, Shortness of breath at rest, Sputum production Gastrointestinal: Denies: Abdominal Pain, Nausea, Vomiting Genitourinary: Denies: Dysuria Musculoskeletal: Denies: Joint Pain, Joint Tenderness Skin: Denies: Rash, Wounds Neurological: Denies: Numbness, Tingling, Focal weakness Psychiatric: Denies: Anxiety, Depression, Homicidal Ideations, Suicidal Ideations Hematologic/ Lymphatic: Denies: Easy Bruising, Easy Bleeding VTE Information - Inpt Only VTE Present on Admission: No VTE Mechan Device Prophylaxis: SCD's VTE Pharm Prophylaxis ordered?: Yes Patient Problems: Active and Suspected Problems Chest pain (Acute) DMII (diabetes mellitus, type 2) (Acute) Hypothyroid (Acute) - Physical Exam General: Alert, Oriented x3, Cooperative HEENT: Atraumatic, PERRLA, EOMI, Normocephalic Neck: Supple, No JVD, Negative Carotid Bruits Lungs: Clear to auscultation, Normal air movement Cardiovascular: Regular rate, No murmurs Abdomen: Bowel Sounds Present, Soft, Non Tender Extremities: No edema, Capillary Refill Less than 3 Seconds Skin: No rashes, No breakdown Musculoskeletal: No Tenderness to Palpation of Joints or Extremities Neurological: Cranial nerves II-XII grossly intact Psych/Mental Status: Normal Affect, Appropriate Vital Signs Temp Pulse Resp BP Pulse Ox 98.1 F 69 16 160/77 H 98 01/07/18 18:41 01/07/18 20:09 01/07/18 20:09 01/07/18 20:09 01/07/18 20:09 Oxygen Delivery Method Nasal Cannula Assessment/Plan Active and Suspected Problems Chest pain (Acute) DMII (diabetes mellitus, type 2) (Acute) Hypothyroid (Acute) 67 year old female w/ h/o DMII, HTN, and hypothyroid admitted for chest pain. 1) Chest pain: Heart score 5 Trops negative EKG disclosed occasional PACs. Otherwise, unremarkable EKG and chest xray. Will resume home meds. ECHO and stress test in AM. 2) HTN: Resume home meds. Monitor. 3) DMII: Resume metformin. 4) Prophylaxis: SCD / heparin. 01/08/18 0452 <Electronically signed by Sulaiman Rowland MD> Date Sulaiman Rowland MD Cosigner Signature: Date (if applicable) CC: Sulaiman Rowland MD; Steve Buitrago DO Signed EMERGENCY DEPARTMENT Observed: 01/08/2018 Status: F Source: AKBAR SUMMARY 12:51 AM [facility] REPOS[facility]ORY [facility] Medical Records Department [address] [place] [address] Emergency Department Summary 01/07/18 1854 MR#: [id number] Acct: [id number] Name: NANDA TRACY Rep #: [id number] : 1950 67 From: Justin Luu MD PCP: Steve Buitrago DO Status: ADM MATTIE - ER Visit Summary Date of Service: 01/07/18 Chief Complaint: Chest pain History of Present Illness: The patient is a 67 F presenting for evaluation secondary chest pain. Patient states that she typically walks about a mile and a half per day on the treadmill, but 2 weeks ago she had the of a family member and had to go to [place] to attend the . Patient states that she did walk for about 2 weeks and started walking again yesterday. Patient states that after walking yesterday she had generalized malaise nausea and some aching in her left arm. She states that this improved throughout the day. Patient states that she walked again today had similar episode and was also associated with a feeling of diaphoresis. Patient states that her symptoms have since improved, but this concerned her so she presented to the emergency department. Patient states that while traveling, they did get out of the car every 2 hours she denies any asymmetric swelling of the legs hemoptysis history of DVT or PE. Patient states that her last stress test was a years ago. Physical Examination: Vital signs are within normal limits, patient is afebrile. General: Patient is well-nourished well-developed and in no acute distress. Head: Normocephalic, atraumatic Eyes: Pupils equal round and reactive bilaterally, extra occular motion intact bialterally ENT: Moist mucous membranes Neck: Supple, no lymphadenopathy, no JVD, no meningismus CVS: Heart regular rate and rhythm, no murmurs, rubs or gallops, radial pulses 2+ bilaterally Resp: Respirations nondistressed, lung sounds clear bilaterally Abdomen: Soft, nontender, nondistended, no palpable masses, normal bowel sounds Back: Nontender Extremities: Nontender, atraumatic, active full range of motion, no peripheral edema Skin: warm, no rashes, no petechia Neuro: Alert and oriented x 4, CN 2-12 intact, no lateralizing neurological defecits Psyc: Normal affect Test Results: EKG shows sinus rate [address] segments, normal T waves, occasional PACs. No evidence of acute ischemia or arrhythmia. Chest x-ray per radiology negative. Troponin CBC and chemistry also found to be unremarkable. Emergency Department Course and Treatment: Patient presented with chest pain. Patient's workup was unremarkable as noted above. Patient's QUIANA score is 3, but her symptomatology is significantly concerning a believe she requires admission for cardiac rule out I discussed this with the hospitalist and the patient will be admitted. Disposition: Admission Impression: 1. Chest pain This note was generated with [employer]! dictation software. It may contain incorrect words, spelling, and punctuation that were not noted in review of the chart prior to signing ED Disposition - Plan for ED Patient: Chief Complaint: Chest Pain Referrals: Steve Buitrago, [Primary Care Provider] - What to do if you have Problems For any increased pain, shortness of breath, bleeding, nausea or vomiting, chest pain, or any unexpected problems, contact your Primary Care Provider. Call [facility] ([phone]) or report to the closest Emergency Room. Call 911 if necessary. 01/08/18 0051 <Electronically signed by Jsutin Luu MD> Date Justin Luu MD Cosigner Signature (If Indicated): Date CC: Steve Buitrago DO CHEST PA AND LATERAL Observed: 01/08/2018 Status: F Source: AKBAR 12:00 AM [facility] REPOS[facility] Imaging Services [address] [place] [address] Chest PA and Lateral MR#: [id number] Acct: [id number] Name: NANDA TRACY Rep #: [id number] : 1950 F 67 From: Mikey Palomino MD PCP: Steve Buitrago DO Status: ADM MATTIE Study: Chest PA and Lateral Date of Exam: 01/08/18 Exam# [id number] Ordering Dr: Sulaiman Rowland MD STUDY: X-RAY CHEST REASON FOR EXAM: Female, 67 years old. Chest pain and cough TECHNIQUE: PA and lateral views of the chest. COMPARISON: None. FINDINGS: EKG leads overlie the chest The lungs are clear and expanded. There is no demonstrated pleural abnormality. Normal size heart. Normal mediastinum and sara. Normal visualized pulmonary arteries. Normal visualized aortic arch and descending thoracic aorta. Normal visualized thoracic spine. Normal visualized ribs, clavicles, and shoulders. There is no demonstrated abnormality of the visualized soft tissue structures of the upper abdomen. RAD/Chest PA and Lateral IMPRESSION: No acute pulmonary process Electronically Signed: Raymond Palomino MD at 7:48 EDT , Service support , CC: Sulaiman Rowland MD; Steve Buitrago DO Field Reimbursement Manager: Signed TROPONIN-I Collected: 01/07/2018 Status: F Source: AKBAR 9:53 PM [facility] Order Comment: 'TROP' Serial specimen #1, #2, #3, or #4: 2 TYPE CODE TESTS RESULT OUT OF RANGE REFERENCE UNITS LAB L501.4010 <0.06 ng/mL Normal < 0.02 TROPONIN-I Result Comment: TROPONIN-I EXPECTED VALUES <0.05 NEGATIVE 0.06 - 0.59 AT RISK OF DE > OR = 0.60 SUGGEST DE Performed By: #### L501.4010 #### [facility] [address] [place], [address] CHEST PA AND LATERAL Observed: 01/07/2018 Status: F Source: LOWELL 5:50 PM [facility] REPOS[facility] Imaging Services [address] [place] [address] Chest PA and Lateral MR#: [id number] Acct: [id number] Name: NANDA TRACY Rep #: [id number] : 1950 F 67 From: Musa Muñiz MD PCP: Andres Solano III, MD Status: PRE ER Study: Chest PA and Lateral Date of Exam: 01/07/18 Exam# [id number] Ordering Dr: Justin Luu MD STUDY: X-RAY CHEST REASON FOR EXAM: Female, 67 years old. Chest pain TECHNIQUE: Frontal and lateral views of the chest COMPARISON: None. FINDINGS: The lungs are clear. There are no pleural effusions. There is no pneumothorax. The heart is normal in size. The visualized osseous structures are within normal limits. RAD/Chest PA and Lateral IMPRESSION: No acute thoracic pathology. Electronically Signed: Musa Muñiz, at 18:14 EDT Tel , Service support , CC: Andres Solano III, MD; Justin Luu Field Reimbursement Manager: Signed CBC W/DIFF, AUTOMATED Collected: 01/07/2018 Status: F Source: LOWELL 5:35 PM [facility] TYPE CODE TESTS RESULT OUT OF RANGE REFERENCE UNITS LAB L100.1000 4.4-11.0 K/mm3 Normal WBC 4.5 LAB L100.1200 4.2-5.4 M/mm3 Normal RBC 4.53 LAB L100.1300 12.0-15.0 g/dl Normal HGB 13.3 LAB L100.1400 37-47 % Normal HCT 39.9 LAB L100.1500 81-99 fL Normal MCV 88.1 LAB L100.1600 27.0-32.0 pg Normal MCH 29.4 LAB L100.1700 32-36 g/gl Normal MCHC 33.3 LAB L100.1810 11.6-14.6 % Normal RDW CV 13.4 LAB L100.1820 35.1-43.9 fl Normal RDW SD 43.0 LAB L100.1900 150-450 K/mm3 Low PLT 130 LAB L100.2000 6.2-12.0 fl Normal MPV 11.1 LAB L100.2100 47-70 % Normal NEUT% 47.6 LAB L100.2200 19-41 % Normal LY% 38.8 LAB L100.2300 0-10 % Normal MONO% 9.7 LAB L100.2400 0-5 % Normal EO% 3.1 LAB L100.2500 0-1 % Normal BASO% 0.4 LAB L100.2550 0.0-0.9 % Normal IM GRAN % 0.400 Result Comment: IG% - Immature Granulocytes (promyelocytes, myelocytes and metamyelocytes) > 1% indicates that a LEFT SHIFT is Present. LAB L100.2620 2.0-7.7 X10 3/uL Normal Absolute Neut 2.2 LAB L100.2720 0.83-4.51 X10 3/ul Normal Absolute Lymph 1.76 Performed By: #### L100.0100 #### [facility] [address] [place], [place], [address] BASIC METABOLIC Collected: 01/07/2018 Status: F Source: LOWELL PROFILE ([facility]) 5:35 PM [facility] Order Comment: 'TROP' Serial specimen #1, #2, #3, or #4: 1 TYPE CODE TESTS RESULT OUT OF RANGE REFERENCE UNITS LAB L501.0100 74-106 mg/dL Normal GLU 102 Result Comment: Fasting Glucose result from 100 to 125 mg/dL suggests IMPAIRED HOMEOSTASIS per A.D.A. criteria. Please note revised GLUCOSE reference range effective 2017. LAB L501.1000 7-18 mg/dL High BUN 19 LAB L501.1100 0.55-1.02 mg/dL Normal CREAT,SERUM 0.80 Result Comment: The validity of the calculated GFR AND GFRAA in patients over 70 years has not been determined. Clinical correlation is essential. LAB L501.1110 >60 mL/min Normal EST GFR 77 Result Comment: Non- GFR Calc LAB L501.1115 >60 mL/min Normal EST GFR - AA 93 Result Comment: GFR Calc LAB L501.1255 ml/min Normal Estimated CRCL 60.54 LAB L501.1300 10-20 RATIO High BUN/CRE 23.8 LAB L501.2200 8.5-10 mg/dL Normal .1 CA 9.4 LAB L501.5300 136-14 mmol/L Normal 5 NA 140 LAB L501.5600 3.5-5. mmol/L Normal 1 K 3.7 LAB L501.5900 98-107 mmol/L Normal CL 103 LAB L501.6100 21.0-3 mmol/L Normal 2.0 CO2 28.0 LAB L501.6200 5-15 Normal GAP 9 Performed By: #### L500.2500, L501.4010 #### [facility] [address] [place], [place], [address] TROPONIN-I Collected: 01/07/2018 Status: F Source: LOWELL 5:35 PM [facility] Order Comment: 'TROP' Serial specimen #1, #2, #3, or #4: 1 TYPE CODE TESTS RESULT OUT OF RANGE REFERENCE UNITS LAB L501.4010 <0.06 ng/mL Normal < 0.02 TROPONIN-I Result Comment: TROPONIN-I EXPECTED VALUES <0.05 NEGATIVE 0.06 - 0.59 AT RISK OF DE > OR = 0.60 SUGGEST DE Performed By: #### L500.2500, L501.4010 #### [facility] [address] [place], [address] D-DIMER QUANTITATIVE Collected: 01/07/2018 Status: F Source: LOWELL (DVT/PE) 5:35 PM [facility]POS[facility] TYPE CODE TESTS RESULT OUT OF RANGE REFERENCE UNITS LAB L300.8000 0.27-0.49 FEU/ug/m Low D-DIMER < 0.27 QUANT Result Comment: NORMAL D-Dimer level (<0.50) indicates no DVT or PE. Performed By: #### L300.8000 #### [facility] [address] [place], [address] ALLERGIES ALLERGIES DATE TYPE / CODE NAME / CODE REACTION SEVERITY SOURCE 01/07/2018 Drug tobramycin/F Rash Unknown [facility] Allergy/4160 [id number]([facility] 16952(SNOMED NORM) Repository CT) ENCOUNTERS ENCOUNTERS ADMIT/DISCHARGE ACCOUNT ADMITTING ENCOUNTER LOCATION SOURCE NUMBER CLASS 11/05/2018 [id number] Ambulatory [place] [facility] ing:LAB Repository 09/10/2018 [id number] Ambulatory [place] [facility] ing:LAB.FUTUR Repository E 01/07/2018/ [id number] [facility] Ambulatory [place] Ak[place] 8 1 [facility] ing:PCURoom: Repository [id number]: 1 01/07/2018 [id number] [facility] BMSBuilding:B [place] Repository 01/07/2018 [id number] [facility] Amb[facility] BMSBuilding:B [place] 4 [place] Repository 01/07/2018/ [id number] Ambulatory BMSBuilding:W [place] 8 7 [facility] Repository PAYERS PAYERS ENCOUNTER GUARANTOR PAYER SUBSCRIBER SOURCE 11/05/2018 KATELYN TRACY Primary NANDA [address] Jr[address]2447 Insurance:CORNELIO FROSTB: [facility] [id number] Number: Repository [place] [id number]: [phone] [id number] [phone] (HP) e Date:4106-86-38YF [address] [address]RB: 11/05/2018 Secondary NOT GIVENUNK [place] Insurance:SELF PAY [facility] Number: Effective Repository Date:2018-11-05 09/10/2018 KATELYN TRACY Primary NANDA [address] Jr[address]2447 Insurance:CORNELIO GRAF: [facility] [id number] Number: Repository [place] [address]Yul: [phone]) [id number] [phone] () e Date:7589-75-80NN [address], [place] [address]TV: 09/10/2018 Secondary NOT GIVENUNK [place] Insurance:SELF PAY [facility] Number: Effective Repository Date:2018-09-05 01/07/2018 KATELYN TRACY Primary NANDA [place] Jr.2447 Insurance:CORNELIO ROBINSONDOB: [facility] [id number] Number: Repository [place] [address]Uoc: [phone]) [id number] [phone] () e Date:0470-27-85GJ [address], [place] [address]XQ: 01/07/2018 Secondary NOT GIVENUNK [place] Insurance:SELF PAY [facility] Number: Effective Repository Date:2018-01-07 01/07/2018 KATELYN TRACY Primary NANDA [place] Jr.2447 Insurance:CORNELIO ROBINSONDOB: [facility] [id number] Number: Repository [place] [id number]: [phone]) [id number] [phone] () e Date:3438-58-50KL [address], [place] [address]ZU: 01/07/2018 Secondary NOT GIVENUNK [place] Insurance:SELF PAY [facility] Number: Effective Repository Date:2018-01-07 01/07/2018 KATELYN TRACY Primary NANDA [place] Jr.2447 Insurance:CORNELIO ROBINSONDOB: [facility] [id number] Number: Repository [place] [address]Xqn: [phone]) [id number] [phone] () e Date:3751-22-22QQ [address] [address]ND: 01/07/2018 Secondary NOT GIVENUNK Akbar Insurance:SELF PAY [facility] Number: Effective Repository Date:2018-01-07 01/07/2018 KATELYN TRACY Primary NANDA [address] 2447 Insurance:CORNELIO TRACYDOB: [facility] [id number] Number: Repository [place] [address]Kow: 330 [id number] [phone] () e Date:6763-95-35ZU [address] [address]WD: 01/07/2018 Secondary NOT GIVENUNK Akbar Insurance:SELF PAY [facility] Number: Effective Repository Date:2018-01-07
== END ==
PROVIDERS: Family Provider Preventive Medicine Occupational Medicine; PCP Preventive Medicine Occupational Medicine; Referring Provider Preventive Medicine Occupational Medicine; Visit Provider Preventive Medicine Occupational Medicine
DX: E03.9 Hypothyroidism, unspecified (principal)
CPT/HCPCS: 36415; 84443

== ENCOUNTER → 2019-04-23 08:42 | Outpatient (CLI) | payer MEDICARE, SELFPAY ==
[2018-01-07 21:18] VITALS: BMI 37.5
[2019-04-23 09:41] LABS: Hemoglobin A1c 6.3 % (4.2-6.3); Thyroid Stim Hormone (TSH) 0.44 uIU/mL (0.358-3.74)
== END ==
PROVIDERS: Family Provider Preventive Medicine Occupational Medicine; PCP Preventive Medicine Occupational Medicine; Referring Provider Preventive Medicine Occupational Medicine; Visit Provider Preventive Medicine Occupational Medicine
DX: E11.9 Type 2 diabetes mellitus without complications (principal); E03.9 Hypothyroidism, unspecified
CPT/HCPCS: 36415; 83036; 84443

== ENCOUNTER 2019-05-23 03:37 | Emergency (ER) | payer MEDICARE, SELFPAY ==
[2019-05-23 03:42] VITALS: BP 175/80; PULSE 66; RESP 14; TEMP 36.6; O2SAT 97; BMI 40.6
--- NOTE | 2019-05-23 03:50 | EKG12_ITS ---
Test Reason : SOB Blood Pressure : / mmHG Vent. Rate : 063 BPM Atrial Rate : 063 BPM P-R Int : 140 ms QRS Dur : 084 ms QT Int : 406 ms P-R-T Axes : 023 007 030 degrees QTc Int : 415 ms Normal sinus rhythm with sinus arrhythmia Normal ECG Confirmed by BRUNO PRIETO ([id number]), editorial writer NORMA PADILLA ([id number]) on 05/27/2019 1:25:11 PM Referred By: ALEJO Confirmed By:BRUNO PRIETO
--- NOTE | 2019-05-23 03:50 | RAD_ITS ---
STUDY: X-RAY CHEST REASON FOR EXAM: Female, 68 years old. Dyspnea TECHNIQUE: Frontal and lateral views of the chest. COMPARISON: None. FINDINGS: The lungs are clear and expanded. There is no demonstrated pleural abnormality. Normal size heart. Normal mediastinum and sara. Normal visualized pulmonary arteries. Normal visualized aortic arch and descending thoracic aorta. There are diffuse degenerative changes of the visualized thoracic spine. Normal visualized ribs, clavicles, and shoulders. There is no demonstrated abnormality of the visualized soft tissue structures of the upper abdomen. RAD/Chest PA and Lateral IMPRESSION: Normal x-ray examination of the chest. Electronically Signed: Kacy Cruz, at 4:28 EDT Tel , Service support ,
--- NOTE | 2019-05-23 03:51 | ED.VIS.GEN ---
History of Present Illness Chief Complaint: Shortness of Breath Informant: Patient Onset: Yesterday Narrative: Here for evaluation of shortness of breath started yesterday morning after a walk. States walks with her second other 1 mile every morning yesterday was more short of breath than normal. States she had to stop. After coming in the home she is more sweaty than normal. The temperature was 64 degrees. Denied any chest tightness or pain. No recent cough. No recent travel, surgeries, or immobilizations. No history of PE or DVT. History of hypertension, hypothyroidism, diabetes. No cardiac history. Denies any bloody stools or melanotic stools. States she is told she is anemic years ago was never given blood transfusions or iron supplements. I concerns secondary to her thyroid, states this was checked yesterday and was normal. Prior similar symptoms: No Past Medical History - Allergies and Home Meds Allergies/Adverse Reactions: Allergies tobramycin Allergy (Verified 05/23/19 03:42) Rash Primary Care Physician: Steve Buitrago DO [Primary Care Provider] - Smoking Status: Never smoker Review of Systems General: Denies: Chills, Fever, Sweats Eyes: Denies: Visual changes - bilaterally, Diplopia ENT: Denies: Rhinorrhea, Sore throat Cardiovascular: Denies: Chest pain, Palpitations Respiratory: Reports: Dyspnea, Dyspnea on exertion. Denies: Cough Gastrointestinal: Denies: Abdominal pain, Nausea, Vomiting, Diarrhea, Melena, Hematochezia Genitourinary: Denies: Dysuria, Hematuria, Frequency Musculoskeletal: Denies: Back pain, Extremity Pain Skin: Denies: Rash, Wounds Neurological: Denies: Headache, Weakness, Numbness Physical Exam Vital Signs/Narrative: Vital Signs Temp Pulse Resp BP Pulse Ox 05/23/19 03:42 97.9 F 66 14 175/80 H 97 Inital Vital Signs reviewed: Yes General: Well nourished, Well developed, No Acute Distress Head: Normocephalic, Atraumatic Eyes: Perrl, EOMI, - - Mild pale conjunctiva ENT: Moist mucous membranes, No rhinorrhea Neck: Supple, Nontender Cardiovascular: Regular rate, Regular rhythm, No murmurs Respiratory: No distress, CTA bilaterally, Chest nontender Abdomen: Soft, Nontender, Nondistended, Normal bowel sounds Back: Nontender, Normal Inspection Extremities: Nontender, No edema Skin: Normal color, No rash, - - Mild pallor of hands Neurological: Alert, Oriented x3, Cranial nerves II-XII grossly intact, Normal Strength, Normal Sensation Psychological: Normal affect, Normal Mood Diagnostic/Tx/Re-eval Clinical Impression(s) from Imaging Studies Chest X-Ray 05/23/19 03:50 IMPRESSION: Normal x-ray examination of the chest. Electronically Signed: Kacy Cruz, at 4:28 EDT Tel , Service support , Abnormal Lab Results 05/23/19 05/23/19 05/23/19 04:00 04:00 04:00 WBC 4.0 L RBC 4.39 Hgb 12.7 Hct 38.4 MCV 87.5 MCH 28.9 MCHC 33.1 RDW Std Deviation 40.7 RDW Coeff of Keely 12.7 Plt Count 124 L MPV 10.7 Immature Gran % (Auto) 0.500 Neut % (Auto) 58.4 Lymph % (Auto) 29.5 [place] % (Auto) 8.3 Eos % (Auto) 3.0 Baso % (Auto) 0.3 Absolute Neuts (auto) 2.3 Absolute Lymphs (auto) 1.18 Nucleated RBC % 0 Sodium 137 Potassium 4.0 Chloride 102 Carbon Dioxide 26.0 Anion Gap 9 BUN 17 Creatinine 0.94 Estim Creat Clear Calc 52.97 Est GFR (MDRD) Af Amer 76 Est GFR (MDRD) Non-Af 63 BUN/Creatinine Ratio 18.1 Glucose 142 H Calcium 9.6 Troponin I < 0.015 TSH 1.70 - Medical Decision Making Patient complains of dyspnea, no cough. No PE risk factors. EKG normal sinus rhythm with no acute changes. Chest x-ray negative. Labs including troponin normal. Hemoglobin is 12.4, initial concerns for anemia with her clinical findings. Patient reported me that her thyroid was performed yesterday. Patient however states a month ago would like it rechecked. This is added, TSH normal range of 1.7. She was ambulated in the department, room air maintain 94 to 97%. Records have stress test and echocardiogram December 2017 both normal except for mild mitral regurgitation on echocardiogram. No clinical signs of heart failure. Discussed with patient monitoring symptoms and follow-up with PCP. Signs and symptoms discussed return. All questions were answered. ED Disposition - Plan for ED Patient: Disposition: Home or Assisted Living Diagnosis: Dyspnea Instructions: ED Dyspnea Referrals: Steve Buitrago DO [Primary Care Provider] - 3-5 Days
[2019-05-23 04:09] LABS: Absolute Lymphocyte Count 1.18 X10^3/uL (0.83-4.51); Absolute Neutrophil Count 2.3 X10^3/uL (2.0-7.7); Basophil# 0.01 X10^3/uL; Basophil% 0.3 % (0-1); Eosinophil# 0.12 X10^3/uL; Hematocrit 38.4 % (37-47); Hemoglobin 12.7 g/dL (12.0-15.0); Lymphocyte # 1.18 X10^3/ul (4.0); Lymphocyte % 29.5 % (19-41); Mean Corp Hgb Conc 33.1 g/dL (32-36); Mean Corpuscular Hgb 28.9 pg (27.0-32.0); Mean Corpuscular Volume 87.5 fL (81-99); Mean Platelet Vol. 10.7 fl (6.2-12.0); Monocyte# 0.33 X10^3/uL; Monocyte% 8.3 % (0-10); NRBC Flagged by Analyzer 0 % (0-5); Neutrophil # 2.34 X10^3/uL (2.7-7.7); Neutrophil % 58.4 % (47-70); Platelet Count 124 K/mm3 (150-450); RBC Distribution Width CV 12.7 % (11.6-14.6); RBC Distribution Width SD 40.7 fl (35.1-43.9); Red Blood Count 4.39 M/mm3 (4.2-5.4)
[2019-05-23 04:31] LABS: Anion Gap 9 (5-15); BUN 17 mg/dL (7-18); BUN/Creat Ratio 18.1 RATIO (10-20); Calcium,Total 9.6 mg/dL (8.5-10.1); Chloride 102 mmol/L (98-107); Creatinine, Serum 0.94 mg/dL (0.55-1.02); EST Glomerular Filtration Rate 63 mL/min (>60); Est Glom Filt Rate - Afr Amer 76 mL/min (>60); Estimated Creatinine Clearance 52.97 ml/min; Glucose 142 mg/dL (74-106); Sodium Level 137 mmol/L (136-145)
[2019-05-23 04:47] VITALS: O2SAT 94
[2019-05-23 05:18] VITALS: BP 144/66; PULSE 54; RESP 19; O2SAT 94
== END 2019-05-23 05:19 | disposition home or self-care (01) ==
PROVIDERS: Emergency Provider Emergency Medicine; Family Provider Preventive Medicine Occupational Medicine; PCP Preventive Medicine Occupational Medicine
DX: R06.09 Other forms of dyspnea (principal); I10 Essential (primary) hypertension; E03.9 Hypothyroidism, unspecified; Z79.899 Other long term (current) drug therapy; Z79.84 Long term (current) use of oral hypoglycemic drugs; Z79.82 Long term (current) use of aspirin; E11.9 Type 2 diabetes mellitus without complications
CPT/HCPCS: 71046; 80048; 84443; 84484; 85025; 93005; 99285; A4216

== ENCOUNTER → 2020-06-16 08:53 | Outpatient (CLI) | payer MEDICARE, SELFPAY ==
[2020-06-16 09:51] LABS: Hemoglobin A1c 9.3 % (3.8-5.6)
[2020-06-16 09:53] LABS: Microalbumin,Random Urine 17.1 mg/L (NO RANGE EST.); Microalbumin:Creatinine Ratio 11.2 mg/g CRE (<30 mg/g CRE)
[2020-06-16 10:30] LABS: ALB/GLOB Ratio 0.9 RATIO (0.9-2.4); AST(SGOT) 85 U/L (15-37); Alanine Aminotransfer ALT/SGPT 62 U/L (13-56); Albumin, Serum 3.5 g/dL (3.2-5.0); Alkaline Phosphatase 97 U/L (45-117); Anion Gap 5 (5-15); BUN 11 mg/dL (7-18); BUN/Creat Ratio 11.9 RATIO (10-20); Calcium,Total 9.1 mg/dL (8.5-10.1); Chloride 99 mmol/L (98-107); Cholesterol 188 mg/dL (200); Creatinine, Serum 0.93 mg/dL (0.55-1.02); EST Glomerular Filtration Rate 64 mL/min (>60); Est Glom Filt Rate - Afr Amer 78 mL/min (>60); Globulin 4.1 g/dL (2.2-4.2); Glucose 185 mg/dL (74-106); High Density Lipoprotein 32 mg/dL; Protein, Total 7.6 g/dL (6.4-8.2); Sodium Level 134 mmol/L (136-145); Thyroid Stim Hormone (TSH) 1.57 uIU/mL (0.358-3.74); Triglycerides 188 mg/dL; Very Low Density Lipoprotein 38 mg/dL (5-40)
== END ==
PROVIDERS: PCP Preventive Medicine Occupational Medicine; Referring Provider Preventive Medicine Occupational Medicine; Visit Provider Preventive Medicine Occupational Medicine
DX: E11.9 Type 2 diabetes mellitus without complications (principal); E03.9 Hypothyroidism, unspecified; I10 Essential (primary) hypertension
CPT/HCPCS: 36415; 80053; 80061; 82043; 82570; 83036; 84443

== ENCOUNTER → 2021-02-04 10:46 | Outpatient (CLI) | payer MEDICARE, SELFPAY ==
[2021-02-04 13:15] LABS: Thyroid Stim Hormone (TSH) 0.14 uIU/mL (0.358-3.74)
== END ==
PROVIDERS: PCP Preventive Medicine Occupational Medicine; Referring Provider Preventive Medicine Occupational Medicine; Visit Provider Preventive Medicine Occupational Medicine
DX: E03.9 Hypothyroidism, unspecified (principal)
CPT/HCPCS: 36415; 84443

== ENCOUNTER → 2021-05-20 09:42 | Outpatient (CLI) | payer MEDICARE, SELFPAY ==
[2021-05-20 10:31] LABS: Thyroid Stim Hormone (TSH) 0.69 uIU/mL (0.358-3.74)
== END ==
PROVIDERS: PCP Preventive Medicine Occupational Medicine; Referring Provider Preventive Medicine Occupational Medicine; Visit Provider Preventive Medicine Occupational Medicine
DX: E03.9 Hypothyroidism, unspecified (principal)
CPT/HCPCS: 36415; 84443